=== PATIENT | male | born 1995 | race Caucasian/White ===

== ENCOUNTER 2020-05-21 11:03 | Emergency (ER) | payer MEDICAID ==
[~2020-05-21] VITALS: Ht 165.1 cm; Wt 119.7 kg
[2020-05-21 11:42] VITALS: BP 147/97; Ht 165.1 cm; Wt 119.7 kg
== END 2020-05-21 13:24 | disposition home or self-care (01) ==
LOC: ED 11:03
DX: J02.9 Acute pharyngitis, unspecified (principal); I10 Essential (primary) hypertension; G89.29 Other chronic pain; M25.562 Pain in left knee; M25.561 Pain in right knee